=== PATIENT | male | born 1970 | race Caucasian/White ===

== ENCOUNTER → 2017-10-06 | Outpatient (CLI) | payer OTHER ==
[~2017-10-06] VITALS: Ht 172.7 cm; Wt 68.2 kg
[2017-10-06 17:25] LABS: ALBUMIN 4.3 g/dL (3.5-5.0); BUN/CREATININE RATIO 12.3 (6.0-26.0); CALCIUM 9.1 mg/dL (8.4-10.2); POTASSIUM 3.8 mmol/L (3.6-5.0); TOTAL BILIRUBIN 0.8 mg/dL (0.2-1.3); TOTAL PROTEIN 7.4 g/dL (6.3-8.2)
[2017-10-06 17:47] LABS: EOS # 0.1 (0.04-0.40); EOS % 0.9 % (0.0-4.0); HEMATOCRIT 43.1 % (42.0-52.0); HEMOGLOBIN 14.3 g/dL (13.5-18.0); LYMPH# 1.6 (1.50-4.00); MEAN CELL VOLUME 88 fl (78-100); MEAN CORPUSCULAR HEMOGLOBIN 29 pg (27-31); MEAN CORPUSCULAR HGB CONC 33 g/dL (33-37); MEAN PLATELET VOLUME 9.4 fl (7.4-10.4); MONO # 0.8 (0.20-0.80); NEU # 7.2 (1.40-6.50); PLATELET COUNT 265 K/mm3 (130-400); RED BLOOD COUNT 4.92 M/mm3 (4.20-5.60); RED CELL DISTRIBUTION WIDTH 13.4 % (11.5-14.5); WHITE BLOOD COUNT 9.7 K/mm3 (4.8-10.8)
[2017-10-06 18:10] VITALS: BP 138/82
[2017-10-06 19:30] VITALS: BP 135/87
== END ==
LOC: RAD 16:54 → AMSURD 16:54
PROVIDERS: Family Medicine
DX: R10.9 Unspecified abdominal pain (principal); R31.9 Hematuria, unspecified; R35.0 Frequency of micturition
CPT/HCPCS: J1885; J7030

== ENCOUNTER → 2017-10-07 | Outpatient (CLI) | payer OTHER ==
[2017-10-06 19:30] VITALS: BP 135/87
== END ==
LOC: RAD 07:14
DX: R10.9 Unspecified abdominal pain (principal)

== ENCOUNTER → 2018-09-16 | Outpatient (CLI) | payer OTHER ==
[2017-10-06 19:30] VITALS: BP 135/87
== END ==
LOC: RAD 10:10
DX: M17.11 Unilateral primary osteoarthritis, right knee (principal)

== ENCOUNTER → 2019-04-30 | Outpatient (CLI) | payer OTHER ==
[2017-10-06 19:30] VITALS: BP 135/87
[2019-04-30 09:35] LABS: ALBUMIN 4.4 g/dL (3.5-5.0); POTASSIUM 4.1 mmol/L (3.5-5.1)
[2019-04-30 09:36] LABS: CALCIUM 9.3 mg/dL (8.3-10.5)
[2019-04-30 09:37] LABS: TOTAL PROTEIN 7.1 g/dL (6.4-8.3)
[2019-04-30 09:39] LABS: TOTAL BILIRUBIN 0.8 mg/dL (0.2-1.2)
== END ==
LOC: LAB 09:03
PROVIDERS: Family Medicine
DX: Z00.00 Encounter for general adult medical examination without abnormal findings (principal); Z13.6 Encounter for screening for cardiovascular disorders; Z13.1 Encounter for screening for diabetes mellitus; I86.1 Scrotal varices; N50.812 Left testicular pain; Z80.0 Family history of malignant neoplasm of digestive organs; N49.2 Inflammatory disorders of scrotum